=== PATIENT | female | born 1970 | race African-American/Black ===

== ENCOUNTER 2021-03-20 02:23 | Emergency (ER) | payer BC, MEDICAID ==
[~2021-03-20] VITALS: Ht 167.6 cm; Wt 87.0 kg
[2021-03-20] MEDS ORDERED: ZYDS20 PO (09:43)
[2021-03-20] MEDS ORDERED: QUET25TA PO (09:43)
[2021-03-20] MEDS ORDERED: ZOLP5TAB2 PO (09:43)
[2021-03-20 11:13] VITALS: BP 121/74
== END 2021-03-20 11:15 | disposition home or self-care (01) ==
LOC: ER 02:23
DX: F23 Brief psychotic disorder (principal); F12.10 Cannabis abuse, uncomplicated; Z91.14 Patient's other noncompliance with medication regimen
CPT/HCPCS: 99283

== ENCOUNTER 2021-03-26 11:33 | Emergency (ER) | payer BC, MEDICAID ==
[~2021-03-26] VITALS: Ht 167.6 cm; Wt 128.0 kg
[~2021-03-26 11:33] MED LIST: QUET25TA PO; ZOLP5TAB2 PO; ZYDS20 PO
[2021-03-26 13:39] LABS: BASOPHILS % 0.4 % (0.0-2.0); EOSINOPHILS % 1.7 % (0.0-5.0); HEMATOCRIT. 35.5 % (36.0-48.0); HEMOGLOBIN. 11.7 g/dL (12.0-16.0); LYMPHOCYTES % 41.7 % (20.0-50.0); MEAN PLATELET VOLUME 8.2 fl (7.4-10.4); MONOCYTES % 7.3 % (2.0-8.0); NEUTROPHILS % 48.9 % (40.0-76.0); PLATELET 302 x1000/uL (130-400); RED BLOOD CELL COUNT 4.17 mill/uL (4.2-5.4); RED CELL DISTRIBUTION WIDTH 16.2 % (11.6-14.6)
[2021-03-26 13:44] LABS: CHLORIDE 108 mEq/L (98-107)
[2021-03-26 13:48] LABS: ETHANOL BLOOD < 10 mg/dL
[2021-03-26 14:54] LABS: CLARITY URINE CLEAR (CLEAR); COLOR URINE YELLOW (YELLOW); KETONES URINE NEGATIVE (NEGATIVE); LEUKOCYTE ESTERASE URINE NEGATIVE (NEGATIVE); NITRITE URINE NEGATIVE (NEGATIVE); OCCULT BLOOD URINE NEGATIVE (NEGATIVE); PH URINE 5.5 (4.5-8.0); PROTEIN URINE NEGATIVE (NEGATIVE); SPECIFIC GRAVITY URINE 1.007 (1.005-1.030); UROBILINOGEN URINE 0.2 E.U./dL (0.2-1.0)
[2021-03-26 15:14] LABS: *AMPHETAMINES SCREEN URINE NEGATIVE (NEGATIVE); *COCAINE SCREEN URINE NEGATIVE (NEGATIVE); CANNABINOID URINE SCREEN NEGATIVE (NEGATIVE)
[2021-03-26 15:15] LABS: *BARBITURATES SCREEN URINE NEGATIVE (NEGATIVE); *BENZODIAZEPINES SCREEN URINE NEGATIVE (NEGATIVE); METHADONE URINE SCREEN NEGATIVE (NEGATIVE); OPIATES URINE SCREEN NEGATIVE (NEGATIVE); PHENCYCLIDINE URINE SCREEN NEGATIVE (NEGATIVE)
[2021-03-26] MEDS ORDERED: HYDR10TA34 MT (23:30)
[2021-03-27 00:02] VITALS: BP 129/82
== END 2021-03-27 00:04 | disposition home or self-care (01) ==
LOC: ER 11:54
DX: F20.0 Paranoid schizophrenia (principal)
CPT/HCPCS: 36415; 80053; 80305; 80307; 80320; 80329; 81003; 81025; 85025; 99283; G0480

== ENCOUNTER 2021-03-27 01:57 | Emergency (ER) | payer BC, MEDICAID ==
[~2021-03-27] VITALS: Ht 170.2 cm; Wt 101.0 kg
[~2021-03-27 01:57] MED LIST changes: +HYDR10TA34 MT
[2021-03-27 06:19] VITALS: BP 132/68
== END 2021-03-27 06:20 | disposition home or self-care (01) ==
LOC: ER 01:57
DX: F32.9 Major depressive disorder, single episode, unspecified (principal); F41.9 Anxiety disorder, unspecified; R45.851 Suicidal ideations
CPT/HCPCS: 99283

== ENCOUNTER 2021-04-14 16:41 | Emergency (ER) | payer BC, MEDICAID ==
[~2021-04-14] VITALS: Ht 162.6 cm; Wt 90.0 kg
[2021-04-14 17:53] LABS: CLARITY URINE CLEAR (CLEAR); COLOR URINE YELLOW (YELLOW); KETONES URINE NEGATIVE (NEGATIVE); LEUKOCYTE ESTERASE URINE NEGATIVE (NEGATIVE); NITRITE URINE NEGATIVE (NEGATIVE); OCCULT BLOOD URINE NEGATIVE (NEGATIVE); PROTEIN URINE NEGATIVE (NEGATIVE); SPECIFIC GRAVITY URINE 1.013 (1.005-1.030); UROBILINOGEN URINE 0.2 E.U./dL (0.2-1.0)
[2021-04-14 17:54] LABS: BASOPHILS % 0.4 % (0.0-2.0); EOSINOPHILS % 1.3 % (0.0-5.0); HEMATOCRIT. 35.5 % (36.0-48.0); HEMOGLOBIN. 11.7 g/dL (12.0-16.0); LYMPHOCYTES % 37.3 % (20.0-50.0); MEAN CORPUSCULAR HEMOGLOBIN 28.2 pg (28.0-32.0); MEAN CORPUSCULAR VOLUME 85.5 fL (81.0-99.0); MEAN PLATELET VOLUME 8.5 fl (7.4-10.4); MONOCYTES % 7.2 % (2.0-8.0); NEUTROPHILS % 53.8 % (40.0-76.0); PLATELET 303 x1000/uL (130-400); RED BLOOD CELL COUNT 4.15 mill/uL (4.2-5.4); RED CELL DISTRIBUTION WIDTH 16.2 % (11.6-14.6)
[2021-04-14 18:02] LABS: *AMPHETAMINES SCREEN URINE NEGATIVE (NEGATIVE); *BARBITURATES SCREEN URINE NEGATIVE (NEGATIVE); *BENZODIAZEPINES SCREEN URINE NEGATIVE (NEGATIVE); *COCAINE SCREEN URINE NEGATIVE (NEGATIVE); CANNABINOID URINE SCREEN NEGATIVE (NEGATIVE); METHADONE URINE SCREEN NEGATIVE (NEGATIVE); OPIATES URINE SCREEN NEGATIVE (NEGATIVE)
[2021-04-14 18:02] LABS: CHLORIDE 105 mEq/L (98-107)
[2021-04-14 18:03] LABS: PHENCYCLIDINE URINE SCREEN NEGATIVE (NEGATIVE)
[2021-04-14 18:06] LABS: ETHANOL BLOOD < 10 mg/dL
[2021-04-14 18:10] LABS: HCG SCREEN NEGATIVE
[2021-04-14] MEDS: OLANZAPINE 10MG TABLET PO SCH ×2 (18:45→19:57)
[2021-04-14] MEDS ORDERED: OLANZAPINE 10 MG/VIAL IM ONE (20:15)
[2021-04-14] MEDS ORDERED: QUETIAPINE FUMARATE 25MG TABLET PO SCH (21:00)
[2021-04-15] MEDS ORDERED: HYDR10TA34 MT (03:26)
[2021-04-15] MEDS ORDERED: ZYDS20 MT (03:26)
[2021-04-15] MEDS ORDERED: QUET25TA MT (03:26)
[2021-04-15 06:31] VITALS: BP 152/80
== END 2021-04-15 06:32 | disposition home or self-care (01) ==
LOC: ER 16:41
DX: F23 Brief psychotic disorder (principal); R45.851 Suicidal ideations; F32.9 Major depressive disorder, single episode, unspecified; Z20.822 Contact with and (suspected) exposure to COVID-19; Z91.011 Allergy to milk products
CPT/HCPCS: 36415; 80053; 80305; 80307; 80320; 80329; 81003; 84703; 85025; 96372; 99285; C9803; J3490; U0003; U0005; G0480